=== PATIENT | female | born 1955 | race Caucasian/White ===

== ENCOUNTER 2023-12-12 16:59 | Emergency (ER) | payer MEDICARE, OTHER, SELFPAY ==
[2023-12-12 17:09] VITALS: BP 131/81; PULSE 82; RESP 18; TEMP 37.1; O2SAT 96; BMI 35.1
--- NOTE | 2023-12-12 17:17 | XR_ITS ---
Patient: TERRIE MITCHELL Facility:?[facility] Patient ID:?[id number] Site Patient ID:?[id number] Site :?[id number] Study:?XRay-Extremity Right KNEE3-12/12/2023 5:35:06 PM Ordering Physician:?[id number] Final Report: Indication: Knee pain. Technique: Right knee 3 views. Comparison: None. Findings: Bones: Alignment is normal. No fractures or bone lesions. Joint spaces: Mild degenerative changes of the patellofemoral compartment. No joint effusion. Soft tissues: Unremarkable. Impression: No evidence of an acute bony abnormality. Dictated by Beltran Haynes MD @ 12/12/2023 6:50:09 PM Signed by:?Beltran Haynes MD @12/12/2023 6:50:09 PM (Electronic Signature)
--- NOTE | 2023-12-12 17:18 | US_ITS ---
Patient: TERRIE MITCHELL Facility:?[facility] Patient ID:?[id number] Site Patient ID:?[id number] Site :?[id number] Study:?US-Extremity Right LEV RT-12/12/2023 6:16:00 PM Ordering Physician:?ARLIN SIMON MD Final Report: INDICATION: Leg pain and swelling. TECHNIQUE: Ultrasound venous duplex lower right extremity. Compression venous exam was performed using gallardo-scale, color Doppler, and spectral Doppler analysis. COMPARISON: None. FINDINGS: Deep veins: Sonographic imaging demonstrates the right common femoral, deep femoral, superficial femoral, popliteal, posterior tibial, peroneal and the contralateral left common femoral veins to be fully compressible with normal color Doppler blood flow. Superficial veins: Greater saphenous vein is fully compressible. No popliteal cyst. IMPRESSION: No deep venous thrombosis in the evaluated veins of the right lower extremity. Dictated by Beltran Haynes MD @ 12/12/2023 6:58:58 PM Signed by:?Beltran Haynes MD @12/12/2023 6:58:58 PM (Electronic Signature)
--- NOTE | 2023-12-12 17:18 | ED.GENADULT ---
HPI - General Adult General Chief complaint: Lower Extremity Swelling Stated complaint: R leg swelling Time Seen by Provider: 12/12/23 17:00 History of Present Illness HPI narrative: Patient is a 68-year-old female new to the hospital ER, who has a 1 month history of sore right lower extremity she has noticed more swelling in her foot and ankle, she has noticed some pain in her knee social with internal external rotation. She has had no fevers or chills. She is our primary care doctor was worried about a clot blood clot and referred to the hospital ER. The patient has never had a blood clot has no bleeding or clotting problems. She has had no fevers. She has a history of reflux, allergy. Specifically she has no shortness of breath, chest pain, trauma to the lower extremity, immobilization. Related Data Home Medications Medication Instructions Recorded Confirmed amitriptyline 10 mg tablet 20 - 30 mg PO QPM 12/12/23 12/12/23 montelukast 10 mg tablet 10 mg PO DAILY 12/12/23 12/12/23 nifedipine 30 mg tablet,extended 30 mg PO DAILY 12/12/23 12/12/23 release 24 hr pantoprazole 40 mg tablet,delayed 40 mg PO DAILY 12/12/23 12/12/23 release triamcinolone acetonide 0.5 % applic topical 3XD 12/12/23 topical cream Allergies Allergy/AdvReac Type Severity Reaction Status Date / Time etodolac Allergy Intermediate Rash Verified 12/12/23 17:16 Review of Systems Status of ROS: Reports: 6 or more systems reviewed and unremarkable except as noted in History and below Exam Narrative: Exam Narrative: Objective: The patient's vital signs are within normal limits Alert orient x3 Right lower extremity shows she does have some descriptive tenderness in her internal external rotation when she wakes up in the morning but at the on examination now she has no tenderness no medial lateral joint line tenderness anterior drawer test is negative distal CMS shows some trace edema in her ankle and foot no palpable venous cords or swelling in the calf Const: Vital Signs, click to edit/add: Vital Signs - 24 hr 12/12/23 17:09 Temperature 98.8 F Pulse Rate [Pulse Oximeter] 82 Respiratory Rate 18 Blood Pressure [Ri ght Upper Arm] 131/81 Pulse Oximetry 96 Oxygen Delivery Me thod Room Air Course Vital Signs Vital signs: Initial Vital Signs Temperature 98.8 F 05/17/24 17:09 Temperature Source Temporal Artery Scan 12/12/23 17:09 Pulse Rate 82 12/12/23 17:09 Pulse Rhythm Regular 12/12/23 17:09 Pulse Strength 3+ Normal 12/12/23 17:09 Respiratory Rate 18 12/12/23 17:09 Blood Pressure 131/81 12/12/23 17:09 Blood Pressure Mean 97 12/12/23 17:09 Blood Pressure Position Sitting 12/12/23 17:09 Pulse Oximetry 96 12/12/23 17:09 Oxygen Delivery Method Room Air 12/12/23 17:09 Vital Signs Temperature 98.8 F 12/12/23 17:09 Pulse Rate 82 12/12/23 17:09 Respiratory Rate 18 12/12/23 17:09 Blood Pressure 131/81 12/12/23 17:09 Pulse Oximetry 96 12/12/23 17:09 Oxygen Delivery Method Room Air 12/12/23 17:09 Temperature 98.8 F 12/12/23 17:09 Pulse Rate 82 12/12/23 17:09 Respiratory Rate 18 12/12/23 17:09 Blood Pressure 131/81 12/12/23 17:09 Pulse Oximetry 96 12/12/23 17:09 Oxygen Delivery Method Room Air 12/12/23 17:09 Medical Decision Making MDM Narrative Medical decision making narrative: 68-year-old white female with a history of knee pain and right lower extremity swelling ankle and foot primarily I think at this point would be reasonable to get an x-ray of her knee, get an ultrasound of her leg to exclude clot. Orthopedic referral. Addendum 6:30 p.m. the patient has a x-ray that by my review read shows some mild medial compartment degenerative joint disease arthritic change, she does have some trace fluid in the knee suprapatellar area on lateral view. Her Doppler scan is negative. I would cysts suggest she wear a neoprene knee sleeve such as from [employer], get on medications such as Tylenol for her knee discomfort. Apparently she has got an allergy the total lack. I would recommend she consult with Orthopedics will. And will give her the number for orthopedic office. Return to the ED sooner problems or concerns. Discharge Plan Discharge Clinical Impression: Localized swelling of right lower extremity, Chronic pain of right knee Patient Disposition: Home, Self-Care Condition: Stable Additional Instructions: Ice to the affected knee, would get a knee sleeve from [employer] or other drug store. Would follow up with Orthopedics in 3-5 days for reassessment, please give her the orthopedic office number. Return to the emergency department as needed. There was no evidence of a clot in your leg. You do not have significant arthritis in your knee but likely some inflammation. Activity Level: Light activity Discharge Diet: Regular Prescriptions: No Action nifedipine 30 mg tablet extended release 24hr 30 mg PO DAILY triamcinolone acetonide 0.5 % cream topical 3XD amitriptyline 10 mg tablet 20 - 30 mg PO QPM pantoprazole 40 mg tablet,delayed release (DR/EC) 40 mg PO DAILY montelukast 10 mg tablet 10 mg PO DAILY Stand Alone Forms: [employer] Info Instructions
== END 2023-12-12 18:51 | disposition home or self-care (01) ==
PROVIDERS: Emergency Provider Family Medicine; PCP Family Medicine
DX: M25.561 Pain in right knee (principal); R22.41 Localized swelling, mass and lump, right lower limb
CPT/HCPCS: 73562; 93971; 99283; 99284

== ENCOUNTER 2024-08-31 20:16 | Emergency (ER) | payer MEDICARE, OTHER, SELFPAY ==
--- OUTSIDE RECORDS SUMMARY | 2024-08-31 20:33 | XMS_ITS | Clinical Summary ---
Author Organization [facility] Address [place], [place] [address] Care Team Providers Care Aquatic Life Laborer Name Role Phone Janet Renae MD Primary Care Provide r Jen Hammer ARBOR PRESS OPERATOR Unavailable Bety Ng MD Unavailable Oma Jordan RN Unavailable Allergies Active Allergy Reactions Criticality Noted Date Comments Etodolac Rash 10/23/2006 Medications multivitamin (MVI) tablet Take 1 tablet by mouth once daily. 0 4 Active loratadine (CLARITIN) 10 mg tabletIndication s:Allergic rhinitis, cause unspecified Take 1 tablet by mouth once daily. 90 tablet 3 6 Active calcium carbonate (CALTRATE) 600 mg calcium (1,500 mg) tablet Take 1 tablet by mouth 2 times daily with meals. 180 tablet 3 9 Active triamcinolone 0.5% (ARISTOCORT) 0.5 % creamIndications :Chilblains, initial encounter Apply topically to affected area(s) three times daily. 30 g 4 Active ascorbic acid, vitamin C, (Vitamin C) 1,000 mg tablet Take 1,000 mg by mouth once daily. Active CPAPIndications: ARLENE (obstructive sleep apnea) Resmed CPAP machine for home use at pressure 12 cmw, CPAP mask- mask of choice, fit to comfort one per 3 months 1 Each 11 4 Active pantoprazole (PROTONIX) 40 mg delayed-release tabletIndication s:Johnson's esophagus without dysplasia Take 1 Tablet (40 mg) by mouth once daily before a meal. 90 Tablet 3 4 Active montelukast (SINGULAIR) 10 mg tabletIndication s:Non-seasonal allergic rhinitis, unspecified trigger Take 1 Tablet (10 mg) by mouth at bedtime. 90 Tablet 3 4 Active SUMAtriptan (IMITREX) 50 mg tabletIndication s:Migraine without status migrainosus, not intractable, unspecified migraine type TAKE 1-2 TABLETS BY MOUTH AT ONSET OF HEADACHE. MAXIMUM DAILY DOSE IS 2 TABLETS 10 Tablet 5 4 Active Active Problems Problem Noted Date Diagnosed Date Chronic pain of right knee 03/10/2024 Overview (03/10/2024): Pain started October 2023. Feb 2024: Right knee cortisone injection by Dr. Sequeira. Myelodysplastic syndrome 01/01/2024 Erythema pernio 01/01/2024 Thrombocytopenia 11/11/2023 Johnson's esophagus without dysplasia 10/29/2017 Overview (08/14/2023): EGD 10/2017 esophageal ulceration and Johnson's, repeat EGD in 1 year EGD 08/2020 Johnson's, repeat EGD in 3 years EGD 07/2023 Johnson's, repeat EGD in 3 years History of kidney stones 07/08/2014 Overview (07/08/2014): Calcium stone of some kind ([facility]) Routine adult health maintenance 03/30/2014 Overview (03/30/2014): Colonoscopy 03/2014 incomplete to the transverse colon, recommend BE in the future ARLENE 10/23/2009 AHI-48 11/06/2009 Allergic rhinitis, cause unspecified 10/23/2006 Overview (10/23/2006): seasonal-spring and fall Temporomandibular joint disorders, unspecified Migraine, unspecified, witho ut mention of intractable migraine without mention of status migrainosus Unspecified menopausal and postmenopausal disord er 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 Resolved Problems Problem Noted Date Diagnosed Date Resolved Date Major depressive disorder, r ecurrent episode, unspecified 04/29/2019 Encounters Date Type Department Care Team Description 08/31/[address] [address] Vin Sequeira MD Appointment Request (KNEE PAIN ) 08/31/2024 Nurse Triage [address] [address] Janet Renae MD Leg Pain/problem; Knee Pain/problem 08/26/2024 11:15 AM CLAMP CARRIER OPERATOR Orders Only [address] [address] [facility] 08/26/2024 Orders Only [address] [address] Jen Hammer, ARBOR PRESS OPERATOR <No scans attached> 08/26/2024 Travel 08/21/2024 Travel 07/14/2024 11:15 AM CLAMP CARRIER OPERATOR Orders Only [address] [address] [facility] 07/14/2024 Telephone [facility] [address] [place] [address] Janet Renae MD Cough (Raw throat) 07/14/2024 Travel 07/13/2024 Travel 07/05/2024 9:10 AM CLAMP CARRIER OPERATOR Office Visit [facility] [address] [place] [address] Zena Devlin MD Sinus Problem (since friday 12/ coughing, mucus green, body aches, fever last 2 days 100.3, lost voice over the weekend, 2 COVID-19 at home were Negative) 07/05/[address] [address] Zena Devlin MD Medication Management 07/05/2024 Travel 07/03/2024 Nurse Triage [facility] [address] [place] [address] Janet Renae MD Cough 06/23/2024 8:20 AM CLAMP CARRIER OPERATOR Office Visit [facility] [address] [place] [address] Zena Devlin MD Abdominal Pain (Started 10pm last night, nothing working, pain scale of 10 ) 06/23/2024 Travel 06/14/2024 Telephone [facility] [address] [place] [address] Anton[place]eta Mace [place], [facility] [place] Up (Cancer genetic testing results) 06/02/2024 1:45 PM CLAMP CARRIER OPERATOR Office Visit [address] [address] Jen Hammer, ARBOR PRESS OPERATOR Follow Up 06/02/2024 Travel from Last 3 Months Immunizations Name Administration Dates Next Due COVID-19 vaccine (Moderna 100mcg/0.5mL) PF, MDV 11/16/2021,06/11/2021,08/29/2020,2020 COVID-19 vaccine (Moderna 50mcg/0.5mL) 12YO+ BIVALENT PF, MDV 05/06/2022 Influenza Virus, Unspecified 04/14/2018 Influenza, High-dose Quadriv alent Inactivated 04/18/2023,05/09/2022,05/15/2021 Influenza, IIV3 (Age >=3 years) 05/07/2017,08/16,05/20/2011 Influenza, Inactivated AIIV4 (Age 65+ Years) Preserv Free 05/15/2021 Influenza, Inactivated IIV3 (Age 65+ Years) Preserv Free 04/13/2024 Pneumococcal Poly,23-Valent (Pneumovax) 09/20/2021 Pneumococcal conj 13-Valent (Prevnar 13) 04/29/2019 Td (Age >=7 Years) 03/07/2000 Tdap 09/20/2021,03/19/2010 Zoster (Shingrix-RZV, recombinant) 07/09/2018,,04/28/2018 Family History Medical History Relation Name Comments Cancer Brother 1 testicular Heart Disease Brother 2 Hyperlipidemia Brother 2 Hypertension Father Hypertension Mother Other Mother dementia- vascu lar Cancer-breast Sister Cancer-colon No Family History Cancer-ovarian No Family History Relation Name Status Comments Brother 1 Brother 2 Father Mother Sister Social History Tobacco Use Types Packs/Day Years Used Date Smoking Tobacco: Never Smokeless Tobacco: Never Tobacco Cessation:Counseling Given: Yes Alcohol Use Standard Drinks/Week Comments Yes 0 (1 standard drink = 0.6 oz pur e alcohol) 1-2 per month PHQ-2 Answer Date Recorded PHQ-2 TOTAL SCORE 0 04/13/2024 Social Connections Answer Date Recorded Do you often feel lonely or isolated from those around you? 0 01/01/2024 Financial Resource Strain Answer Date R ecorded Difficulty of Paying Living Expenses 3 11/11/2023 Difficulty of Paying Living Expenses Not on file 11/11/2023 Food Insecurity Answer Date Recorded Do you worry your food will run out before you are able to buy more? 1 01/01/2024 Transportation Needs Answer Date Record ed Does lack of transportation keep you from medica l appointments? 1 01/01/2024 Does lack of transportation keep you from work, meetings or getting things that you need? 1 01/01/2024 Housing Stability Answer Date Recorded What is your housing situation today? 1 01/01/2024 Utilities Answer Date Recorded Do you have trouble paying f or utilities (for example, heat, electricity, water, phone)? 1 01/01/2024 Comments No Sex and Gender Information Value Date Recorded Sex Assigned at Not on file Legal Sex Female 5:27 AM CLAMP CARRIER OPERATOR Gender Identity Not on file Sexual Orientation Not on file Occupation Industry Job Start Date Job End Date Not on file Not on file Not on file Not on file Obstetrics History Para Term AB IAB SAB Ectopic Multiple Livin g Live Births 0 0 0 0 0 0 0 0 0 0 Last Filed Vital Signs Vital Sign Reading Time Taken Comments Blood Pressure 136/82 07/05/2024 9:19 AM CLAMP CARRIER OPERATOR Pulse 84 07/05/2024 9:19 AM CLAMP CARRIER OPERATOR Temperature 37.6 C (99.6 F) 07/05/2024 9:19 AM CLAMP CARRIER OPERATOR Respiratory Rate 17 06/02/2024 1:34 PM CLAMP CARRIER OPERATOR Oxygen Saturation 98% 07/05/2024 9:19 AM CLAMP CARRIER OPERATOR Inhaled Oxygen Concentration - - Weight 90.7 kg (200 lb) 07/05/2024 9:19 AM CLAMP CARRIER OPERATOR Height 160 cm (5' 3) 04/13/2024 8:55 AM CDT Body Mass Index 35.43 04/13/2024 8:55 AM CDT Plan of Treatment Upcoming Encounters Date Type Department Care Team (Late st Contact Info) Description 09/02/2024 1:00 PM CLAMP CARRIER OPERATOR Office Visit [facility] [address] [place] [address] Bety Ng MD [address] [place] [address] 09/07/2024 10:20 AM CLAMP CARRIER OPERATOR Office Visit [facility] [address] [place] [address] Vin Sequeira MD [address] [place] [address] Health Maintenance Due Date Last Done Comments RSV vaccine for adults or (1 - Risk 60-74 years 1-dose series) 2014 Mammogram for age 45-75 03/23/2025 03/23/20 24, 01/21/2023, 09/20/2021, Additional history exists BMI (ht and wt on same day) for age 18+ 04/13/2025 04/13/2024, 11/18/2023, 11/11/2023, Additional history exists Depression screening for age 12+ 04/13/2025 04/13/2024, 04/13/2024, 01/21/2023, Additional history exists Medicare Wellness for age 65+ 04/14/2025 04/13/2024, 01/21/2023 Fecal testing sDNA-FIT ([place] guard) for age 45-75 05/05/2027 05/05/2024 Lipids for age 45-75 04/13/2029 04/13/2024, 01/21/2023, 08/11/2020, Additional history exists Tetanus booster 09/20/2031 09/20/2021, 02/26, 03/07/2000 Hepatitis C screening for ag e 18-79 Completed 05/05/2018 Zoster (shingles) series for age 50+ Completed 07/09/2018, 07/09/2018, 04/28/2018 DEXA/DXA scan for age 65+ Completed 05/04/2019 Pneumococcal series for age 50+ Completed , 04/29/2019 Tdap Completed 09/20/2021, 03/19/2010 Influenza for age 65+ Completed 04/13/2024 , 04/18/2023, 05/09/2022, Additional history exists COVID-19 vaccine series Completed 04/20/20, 08/07/2023, 11/29/2022, Additional history exists Procedures Procedure Name Priority Date/Time Associated Diagnosis Comments RETICULOCYTES Routine 08/26/2024 12:08 PM CLAMP CARRIER OPERATOR PLATELET ESTIMATION ([facility] REFLEX ONLY) Routine 08/26/2024 12:08 PM CLAMP CARRIER OPERATOR CBC WITH AUTO DIFFERENTIAL Routine 08/26/2024 12:08 PM CLAMP CARRIER OPERATOR COMP METABOLIC PANEL Routine 08/26/2024 12:08 PM CLAMP CARRIER OPERATOR LD,TOTAL Routine 08/26/2024 12:08 PM CLAMP CARRIER OPERATOR PLATELET ESTIMATION ([facility] REFLEX ONLY) Routine 07/14/2024 11:14 AM CLAMP CARRIER OPERATOR CBC WITH AUTO DIFFERENTIAL Routine 07/14/2024 11:14 AM CLAMP CARRIER OPERATOR Myelodysplastic syndrome (HC) RED CELL MORPHOLOGY STAT 06/23/2024 9 :18 AM CLAMP CARRIER OPERATOR Abdominal pain, generalized PLATELET ESTIMATE STAT 06/23/2024 9:1 8 AM CLAMP CARRIER OPERATOR Abdominal pain, generalized MANUAL DIFFERENTIAL STAT 06/23/2024 9 :18 AM CLAMP CARRIER OPERATOR Abdominal pain, generalized CBC WITH AUTO DIFFERENTIAL STAT 06/23/2024 9:18 AM CLAMP CARRIER OPERATOR Abdominal pain, generalized COMP METABOLIC PANEL STAT 06/23/2024 9:18 AM CLAMP CARRIER OPERATOR Abdominal pain, generalized CBC WITH AUTO DIFFERENTIAL STAT 06/23/2024 9:18 AM CLAMP CARRIER OPERATOR Abdominal pain, generalized URINALYSIS MACROSCOPIC - [facility] ONLY POC DIP ([facility]) Routine 06/23/2024 8:44 AM CLAMP CARRIER OPERATOR Abdominal pain, generalized URINALYSIS MICROSCOPIC Routine 06/23/2024 8:43 AM CLAMP CARRIER OPERATOR Abdominal pain, generalized URINE CULTURE Routine 06/23/2024 8:43 AM CLAMP CARRIER OPERATOR Abdominal pain, generalized SDNA-FIT EXTERNAL (COLOGUARD) Routine 05/05/2024 8:15 PM CDT Screening for colon cancer LIPID PANEL W REFLEX MEASURED LDL Routine 04/13/2024 11:19 AM CDT Lipid screening XR MAMMO BANDAR BILAT SCREEN Routine 03/23/2024 9:05 AM CDT Visit for screening mammogram XR DXA BONE DENSITY 2 SITES AXIAL Routine 05/04/2019 9:47 AM CDT Menopausal and postmenopausal disorder ANTI HCV Routine 05/05/2018 8:49 AM CDT Need for hepatitis C screening test from Last 3 Months or Most Recently Relevant to Health Maintenance Results * (ABNORMAL) PLATELET ESTIMATION ([facility] REFLEX ONLY) (08/26/2024 12:08 PM CLAMP CARRIER OPERATOR) Only the most recent of2 resultswithin the time period is included. PLATELET ESTIMATION DECREASED( A) ADEQUATE [facility] 08/26/2024 12:0 8 PM CLAMP CARRIER OPERATOR 08/26/2024 12:08 PM CLAMP CARRIER OPERATOR us Li L Richy ARBOR PRESS OPERATOR HEMATOLOGY Final Result Performing Organization Address [facility]/ZIP Co de Phone Number [facility] [address] [place] [address], [place] [phone] [facility] [address] [place] [address] * LD,TOTAL (08/26/2024 12:08 PM CLAMP CARRIER OPERATOR) Pathologist [facility] LD 216 120 - 250 U/L [facility] 08/26/2024 12:0 8 PM CLAMP CARRIER OPERATOR 08/26/2024 12:08 PM CLAMP CARRIER OPERATOR us Jen Villanuevay ARBOR PRESS OPERATOR CHEMISTRY Final Result Performing Organization Address [facility] Co de Phone Number [facility] [address] [place] [address], [place] [phone] [facility] [address] [place] [address] * RETICULOCYTES (08/26/2024 12:08 PM CLAMP CARRIER OPERATOR) [facility] RETICULOCYTE COUNT, AUTOMATED 1.3 % [facility] RETICULOCYTE, ABSOLUTE 56,160 20,000 - 80,000 cells/uL [facility] 08/26/2024 12:0 8 PM CLAMP CARRIER OPERATOR 08/26/2024 12:08 PM CLAMP CARRIER OPERATOR us Li L Selly ARBOR PRESS OPERATOR HEMATOLOGY Final Result Performing Organization Address [facility]/ZIP Co de Phone Number [facility] [address] [place] [address], [place] [phone] [facility] [address] [place] [address] * (ABNORMAL) CBC AND DIFFERENTIAL (08/26/2024 12:08 PM CLAMP CARRIER OPERATOR) Only the most recent of2 resultswithin the time period is included. WHITE BLOOD CELL COUNT 3.8 3.8 - 10.8 Thousand/u L [facility] RED BLOOD CELL COUNT 4.32 3.80 - 5.10 Million/uL [facility] HEMOGLOBIN 12.3 11.7 - 15.5 g/dL [facility] HEMATOCRIT 39.3 35.0 - 45.0 % [facility] MCV 91.0 80.0 - 100.0 fL [facility] MCH 28.5 27.0 - 33.0 pg [facility] MCHC 31.3(L) 32.0 - 36.0 g/dL [facility] Comment: For adults, a slight decrease in the calculated MCHC value (in the range of 30 to 32 g/dL) is most likely not clinically significant; however, it should be interpreted with caution in correlation with other red cell parameters and the patient's clinical condition. RDW 13.2 11.0 - 15.0 % [facility] PLATELET COUNT 49(L) 140 - 400 Thousand/u L [facility] MPV [facility] Comment: Due to platelet or RBC variability in size or shape the result cannot be reported accurately. ABSOLUTE NEUTROPHILS 1,121(L) 1,500 - 7,800 cells/uL [facility] ABSOLUTE LYMPHOCYTES 2,029 850 - 3,900 cells/uL [facility] ABSOLUTE MONOCYTES 619 200 - 950 cells/uL [facility] ABSOLUTE EOSINOPHILS 19 15 - 500 cells/uL [facility] ABSOLUTE BASOPHILS 11 0 - 200 cells/uL [facility] NEUTROPHILS 29.5 % [facility] LYMPHOCYTES 53.4 % [facility] MONOCYTES 16.3 % [facility] EOSINOPHILS 0.5 % [facility] BASOPHILS 0.3 % [facility] CBC (INCLUDES DIFF/PLT) COMMENTS [facility] Comment: Review of the peripheral smear reveals decreased numbers of platelets. Giant platelets noted. 08/26/2024 12:0 8 PM CLAMP CARRIER OPERATOR 08/26/2024 12:08 PM CLAMP CARRIER OPERATOR us Jen Hammer NP HEMATOLOGY Final Result [facility] [address] [place] [address], [facility] [address] [place] [address] * COMP METABOLIC PANEL (08/26/2024 12:08 PM CLAMP CARRIER OPERATOR) Only the most recent of2 resultswithin the time period is included. GLUCOSE 93 65 - 99 mg/dL [facility] Comment: Fasting reference interval UREA NITROGEN (BUN) 15 7 - 25 mg/dL [facility] CREATININE 0.88 0.60 - 1.00 mg/dL [facility] EGFR 71 > OR = 60 mL/min/1. 73m2 [facility] BUN/CREATININE RATIO SEE NOTE: 6 - 22 (calc) [facility] Comment: Not Reported: BUN and Creatinine are within reference range. SODIUM 140 135 - 146 mmol/L [facility] POTASSIUM 3.9 3.5 - 5.3 mmol/L [facility] CHLORIDE 105 98 - 110 mmol/L [facility] CARBON DIOXIDE 25 20 - 32 mmol/L [facility] CALCIUM 9.4 8.6 - 10.4 mg/dL [facility] PROTEIN, TOTAL 7.2 6.1 - 8.1 g/dL [facility] ALBUMIN 4.4 3.6 - 5.1 g/dL [facility] GLOBULIN 2.8 1.9 - 3.7 g/dL (calc) [facility] ALBUMIN/GLOBULIN RATIO 1.6 1.0 - 2.5 (calc) [facility] BILIRUBIN, TOTAL 0.4 0.2 - 1.2 mg/dL [facility] ALKALINE PHOSPHATASE 67 37 - 153 U/L [facility] AST 18 10 - 35 U/L [facility] ALT 17 6 - 29 U/L [facility] 08/26/2024 12:0 8 PM CLAMP CARRIER OPERATOR 08/26/2024 12:08 PM CLAMP CARRIER OPERATOR us Jen L Jaquelin ARBOR PRESS OPERATOR CHEMISTRY Final Result [facility] [address] [place] [address], [place] [phone] [facility] [address] [place] [address] * (ABNORMAL) CBC WITH AUTO DIFFERENTIAL (06/23/2024 9:18 AM CLAMP CARRIER OPERATOR) WHITE BLOOD COUNT 4.3(L) 4.5 - 11.0 thou/cu mm 06/23/2024 1:11 PM [facility] RED BLOOD COUNT 4.37 4.00 - 5.20 mil/cu mm 06/23/2024 1:11 PM [facility] HEMOGLOBIN 12.5 12.0 - 16.0 g/dL 06/23/2024 1:11 PM [facility] HEMATOCRIT 40.6 33.0 - 51.0 % 06/23/2024 1:11 PM [facility] MCV 93 80 - 100 fL 06/23/2024 1:11 PM [facility] MCH 28.6 26.0 - 34.0 pg 06/23/2024 1:11 PM [facility] MCHC 30.8(L) 32.0 - 36.0 g/dL 06/23/2024 1:11 PM [facility] RDW 14.2 11.5 - 15.5 % 06/23/2024 1:11 PM [facility] PLATELET COUNT 41(L) 140 - 440 thou/cu mm 06/23/2024 1:11 PM [facility] MPV 06/23/2024 1:11 PM [facility] Comment:Unable to be determi kelly Blood BLOOD SPECIMEN / Unknown [facility] / Unknown 06/23/2024 9:18 AM CLAMP CARRIER OPERATOR 06/23/2024 9:18 AM CLAMP CARRIER OPERATOR us Zena Devlin MD HEMATOLOGY Final Resul t Performing Organization Address [facility]/ZIP Co de Phone Number [facility] [address] [place] [address] * RED CELL MORPHOLOGY (06/23/2024 9:18 AM CLAMP CARRIER OPERATOR) RBC COMMENT RBC morphology appears normal RBC morphology appears normal, RBC morphology within normal limits for newborns. 06/23/2024 1:11 PM CLAMP CARRIER OPERATOR [facility] LARGE PLATELETS Present 06/23/2024 1:11 PM CLAMP CARRIER OPERATOR [facility] Blood BLOOD SPECIMEN / Unknown [facility] / Unknown 06/23/2024 9:18 AM CLAMP CARRIER OPERATOR 06/23/2024 9:18 AM CLAMP CARRIER OPERATOR us Zena Devlin MD HEMATOLOGY Final Resul t Performing Organization Address [facility] Co de Phone Number [facility] [address] [place] [address] * (ABNORMAL) PLATELET ESTIMATE (06/23/2024 9:18 AM CLAMP CARRIER OPERATOR) Pathologist [facility] PLATELET ESTIMATE Decreased (A) Adequate, No estimate 06/23/2024 1:11 PM CLAMP CARRIER OPERATOR [facility] Blood BLOOD SPECIMEN / Unknown [facility] / Unknown 06/23/2024 9:18 AM CLAMP CARRIER OPERATOR 06/23/2024 9:18 AM CLAMP CARRIER OPERATOR us Zena Devlin MD HEMATOLOGY Final Resul t Performing Organization Address City/[facility] Co de Phone Number [facility] [address] [place] [address] * (ABNORMAL) MANUAL DIFFERENTIAL (06/23/2024 9:18 AM CLAMP CARRIER OPERATOR) Pathologist [facility] % NEUTROPHILS 48.0 % 06/23/2024 1:11 PM [facility] % LYMPHOCYTES 31.0 % 06/23/2024 1:11 PM [facility] % MONOCYTES 20.0 % 06/23/2024 1:11 PM [facility] % EOSINOPHILS 1.0 % 06/23/2024 1:11 PM [facility] % BASOPHILS 0.0 % 06/23/2024 1:11 PM [facility] NEUTROPHILS ABSOLUTE 2.1 1.7 - 7.0 thou/cu mm 06/23/2024 1:11 PM [facility] LYMPHOCYTES ABSOLUTE 1.3 0.9 - 2.9 thou/cu mm 06/23/2024 1:11 PM [facility] MONOCYTES ABSOLUTE 0.9(H) <0.9 thou/cu mm 06/23/2024 1:11 PM [facility] EOSINOPHILS ABSOLUTE 0.0 <0.5 thou/cu mm 06/23/2024 1:11 PM [facility] BASOPHILS ABSOLUTE 0.0 <0.3 thou/cu mm 06/23/2024 1:11 PM [facility] Blood BLOOD SPECIMEN / Unknown [facility] / Unknown 06/23/2024 9:18 AM CLAMP CARRIER OPERATOR 06/23/2024 9:18 AM CLAMP CARRIER OPERATOR us Zena Devlin MD HEMATOLOGY Final Resul t Performing Organization Address City/State/[facility] Co de Phone Number [facility] [address] [place] [phone] * (ABNORMAL) POCT Urinalysis Dipstick Only (06/23/2024 8:44 AM CLAMP CARRIER OPERATOR) PH 7.0 5.0 - 8.0 [facility] SPECIFIC GRAVITY 1.020 1.001 - 1.035 [facility] GLUCOSE NEGATIVE NEGATIVE [facility] BILIRUBIN NEGATIVE NEGATIVE [facility] KETONES NEGATIVE NEGATIVE [facility] OCCULT BLOOD TRACE(A) NEGATIVE [facility] PROTEIN NEGATIVE NEGATIVE [facility] NITRITE NEGATIVE NEGATIVE [facility] LEUKOCYTE ESTERASE TRACE(A) NEGATIVE [facility] Urine URINE SPECIMEN / Unknown 06/23/2024 8:44 AM CLAMP CARRIER OPERATOR 06/23/2024 8:45 AM CLAMP CARRIER OPERATOR us Zena Devlin MD URINE Final Resul t [facility] [address] [place] [address], [facility] [address] [place] [address] * (ABNORMAL) URINALYSIS MICROSCOPIC (06/23/2024 8:43 AM CLAMP CARRIER OPERATOR) RBC 3-5(A) 0-2, None Seen /HPF 06/23/2024 2:20 PM CLAMP CARRIER OPERATOR [facility] WBC 0-2 0-2, 3-5, None Seen /HPF 06/23/2024 2:20 PM CLAMP CARRIER OPERATOR [facility] BACTERIA None Seen None Seen, Rare, Few Bacteria/ HPF 06/23/2024 2:20 PM CLAMP CARRIER OPERATOR [facility] EPITHELIAL CELLS None Seen None Seen, Few Epi/HPF 06/23/2024 2:20 PM CLAMP CARRIER OPERATOR [facility] Urine URINE SPECIMEN / Unknown Non-Blood / Unknown 06/23/2024 8:43 AM CLAMP CARRIER OPERATOR 06/23/2024 8:43 AM CLAMP CARRIER OPERATOR us Zena Devlin MD URINE Final Resul t [facility] [facility] [address] [place] [address], * URINE CULTURE (06/23/2024 8:43 AM CLAMP CARRIER OPERATOR) CULTURE No growth (<1,000 CFU/mL) 06/24/2024 3:41 PM CLAMP CARRIER OPERATOR [facility] Urine URINE SPECIMEN / Unknown Non-Blood / Unknown 06/23/2024 8:43 AM CLAMP CARRIER OPERATOR 06/23/2024 8:43 AM CLAMP CARRIER OPERATOR us Zena Devlin MD MICROBIOLOGY Final Resul t [facility] [address] [place] [address], * SDNA-FIT EXTERNAL (COLOGUARD) (05/05/2024 8:15 PM CDT) NONINV COLON CA DNA+OCC BLD SCRN STL-IMP Negative Negative 05/12/2024 9:31 AM CDT [facility] (CLIA #:[id number]) Comment: NEGATIVE TEST RESULT. A negative Cologuard result indicates a low likelihood that a colorectal cancer (CRC) or advanced adenoma (adenomatous polyps with more advanced pre-malignant features) is present. The chance that a person with a negative Cologuard test has a colorectal cancer is less than 1 in 1500 (negative predictive value >99.9%) or has an advanced adenoma is less than 5.3% (negative predictive value 94.7%). These data are based on a prospective cross-sectional study of 10,000 individuals at average risk for colorectal cancer who were screened with both Cologuard and colonoscopy. (Keisha Coronel et al, N Engl J Med 2014;370(14):3396-8473) The normal value (reference range) for this assay is negative. COLOGUARD RE-SCREENING RECOMMENDATION: Periodic colorectal cancer screening is an important part of preventive healthcare for asymptomatic individuals at average risk for colorectal cancer. Following a negative Cologuard result, the [place] [employer] and U.S. Multi-Society Task Force screening guidelines recommend a Cologuard re-screening interval of 3 years. References: [place] [employer] Guideline for Colorectal Cancer Screening: https://www.cancer.org/cancer/wuxot-kmmuib-mitone/krayqzyyh-kvjyrwmmh-airkrpl/ac s-rec ommendations.html.; Mickey DK, Darryl CR, Jyoti SALGADO, Colorectal Cancer Screening: Recommendations for Physicians and Patients from the U.S. Multi-Society Task Force on Colorectal Cancer Screening , Am J Gastroenterology 2017; 112:1427-2615. TEST DESCRIPTION: Composite algorithmic analysis of stool DNA-biomarkers with hemoglobin immunoassay. Quantitative values of individual biomarkers are not reportable and are not associated with individual biomarker result reference ranges. Cologuard is intended for colorectal cancer screening of adults of either sex, 45 years or older, who are at average-risk for colorectal cancer (CRC). Cologuard has been approved for use by the U.S. FDA. The performance of Cologuard was established in a cross sectional study of average-risk adults aged 50-84. Cologuard performance in patients ages 45 to 49 years was estimated by sub-group analysis of near-age groups. Colonoscopies performed for a positive result may find as the most clinically significant lesion: colorectal cancer [4.0%], advanced adenoma (including sessile serrated polyps greater than or equal to 1cm diameter) [20%] or non- advanced adenoma [31%]; or no colorectal neoplasia [45%]. These estimates are derived from a prospective cross-sectional screening study of 10,000 individuals at average risk for colorectal cancer who were screened with both Cologuard and colonoscopy. (Keisha Elias. et al, N Engl J Med 2014;370(14):6456-4827.) Cologuard may produce a false negative or false positive result (no colorectal cancer or precancerous polyp present at colonoscopy follow up). A negative Cologuard test result does not guarantee the absence of CRC or advanced adenoma (pre-cancer). The current Cologuard screening interval is every 3 years. ([place] [employer] Society and U.S. Multi-Society Task Force). Cologuard performance data in a 10,000 patient pivotal study using colonoscopy as the reference method can be accessed at the following location: www.[employer].com/results. Additional description of the Cologuard test process, warnings and precautions can be found at [email or web address]. Stool specimen (specimen) (Rectum) 05/05/2024 8:15 PM CDT 05/07/2024 10:00 AM CDT Janet Renae MD URINE Final Result [facility] (CLIA #:[id number]) [place] [address], [place] [phone] * (ABNORMAL) LIPID PANEL W REFLEX MEASURED LDL (04/13/2024 11:19 AM CDT) CHOLESTEROL, TOTAL 228(H) <200 mg/dL [facility] HDL CHOLESTEROL 60 > OR = 50 mg/dL [facility] TRIGLYCERIDES 111 <150 mg/dL [facility] LDL-CHOLESTEROL 145(H) mg/dL (calc) [facility] Comment: Reference range: <100 Desirable range <100 mg/dL for primary prevention; <70 mg/dL for patients with CHD or diabetic patients with > or = 2 CHD risk factors. LDL-C is now calculated using the Phu calculation, which is a validated novel method providing better accuracy than the Friedewald equation in the estimation of LDL-C. Jeovany CABALLERO et al. ZAHRAA. 2013;310(19): 4048-3576 (http://education.Conviva/faq/OHZ179) CHOL/HDLC RATIO 3.8 <5.0 (calc) [facility] NON HDL CHOLESTEROL 168(H) <130 mg/dL (calc) [facility] Comment: For patients with diabetes plus 1 major ASCVD risk factor, treating to a non-HDL-C goal of <100 mg/dL (LDL-C of <70 mg/dL) is considered a therapeutic option. Blood BLOOD SPECIMEN / Unknown 04/13/2024 11:19 AM CDT 04/13/2024 11:19 AM CDT Janet Renae MD CHEMISTRY Final Result [facility] [address] [place] [address], [place] [phone] [facility] [address] [place] [address] * XR MAMMO BANDAR BILAT SCREEN (03/23/2024 9:05 AM CDT) Anatomical Region Laterality Modality BREASTS, Breast Left, Breast Right Bilateral Mammography Impressions 03/24/2024 2:51 PM CDT There is no radiographic evidence for malignancy. Recommend annual mammograms. MAMMOGRAM ASSESSMENT: ACR 1 Negative PATIENTS: You will also receive a letter with your examination results in an easy to read format. If you have questions about your results, please contact your referring provider. Narrative 03/24/2024 2:51 PM CDT For Patients: As a result of the Century Cures Act, medical imaging exams and procedure reports are released immediately into your electronic medical record. You may view this report before your referring provider. If you have questions, please contact your health care provider. XR MAMMO BANDAR BILAT SCREEN [[id number]] CLINICAL HISTORY: This is an asymptomatic 69 y.o. patient. INDICATION FOR EXAM: Mammogram Screening. TECHNIQUE: CC & MLO views were obtained. This study was evaluated with the assistance of Computer-Aided Detection. Breast Tomosynthesis was used in interpretation. COMPARISON FILM: Yes 01/21/23 [facility] 09/20/21 [employer] FINDINGS: There are scattered areas of fibroglandular density. There are no dominant masses, suspicious micro calcifications or areas of architectural distortion. us Janet Renae MD MAMMO Final Result * (ABNORMAL) XR DXA BONE DENSITY 2 SITES AXIAL (05/04/2019 9:47 AM CDT) Anatomical Region Laterality Modality Spine, HIPS, HIPL, HIPR Other Narrative 05/05/2019 4:34 PM CDT Please see scanned document for results of this study. us Andrey Fletcher MD DEXA Final Resu lt * ANTI HCV [[id number]] (05/05/2018 8:49 AM CDT) HEPATITIS C ANTIBODY Non-React billy Non-React billy 05/05/2018 2:14 PM CDT [facility] Comment:Antibodies to HCV no t detected; does not exclude the possibility of exposure to HCV. Blood BLOOD SPECIMEN / Unknown Venipuncture / Unknown 05/05/2018 8:49 AM CDT 05/05/2018 8:49 AM CDT us Andrey Fletcher MD SEND OUTS Final Resu lt [facility] 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
[2024-08-31 21:21] VITALS: BP 144/80; PULSE 82; RESP 18; TEMP 37.1; O2SAT 99; BMI 33.7
[2024-08-31 21:48] VITALS: BP 135/74; PULSE 80; RESP 18; TEMP 37.1; O2SAT 99
--- NOTE | 2024-08-31 21:48 | ED.GENADULT ---
HPI - General Adult General Date Seen: 08/31/24 Chief complaint: Extremity Pain/Injury, Lower Stated complaint: R knee pain Time Seen by Provider: 08/31/24 21:27 History of Present Illness HPI narrative: Patient is a 69-year-old woman with a history of knee pain for the past year so. She says that she had an injection by her primary doctor 6-9 months ago and was doing well until about the past week and a half when she started to get sharp pain and the side and back of her right knee. This radiates up and down her leg. She says if she is standing still she feels okay but as soon as she tries to put weight on that leg she has sharp pain. She called the nurse line today to ask what to do and they recommended she come in to rule out DVT. She does not have any history of DVT or PE. She does have it sounds like some kind of myelodysplastic syndrome which is being watched, she says her white blood cell count is low and she bruises easily, but has not been diagnosed with cancer. She has not noted significant swelling in the leg, no redness. She has been taking Tylenol but she says it just does not help and she is having trouble getting around even with her mother's cane. She says she called the nurse line to figure out what else she could do for pain so that she can be more mobile. Related Data Home Medications ?Medication ?Instructions ?Recorded ?Confirmed amitriptyline 10 mg tablet 20 - 30 mg PO QPM 12/12/23 12/12/23 montelukast 10 mg tablet 10 mg PO DAILY 12/12/23 12/12/23 nifedipine 30 mg tablet,extended 30 mg PO DAILY 12/12/23 12/12/23 release 24 hr pantoprazole 40 mg tablet,delayed 40 mg PO DAILY 12/12/23 12/12/23 release triamcinolone acetonide 0.5 % applic topical 3XD 12/12/23 topical cream Allergies Allergy/AdvReac Type Severity Reaction Status Date / Time etodolac Allergy Intermediate Rash Verified 12/12/23 17:16 Review of Systems Status of ROS: Reports: 6 or more systems reviewed and unremarkable except as noted in History and below PFSH PFSH Social History Smoking Status: Never smoker Second hand tobacco smoke exposure: No How often do you have a drink containing alcohol: never AUDIT-C Alcohol total score: 0 Non-prescribed substance use: denies use Exam Narrative: Exam Narrative: Vital signs reviewed In general, alert, well-appearing woman, she looks comfortable lying in bed. Extremities: Examination of bilateral lower extremity shows no significant asymmetry, she has trace edema in both ankles. Her right knee is mildly tender laterally and medially, she actually does not have any tenderness posteriorly. She has likely a small effusion, there is no erythema or warmth. She has full range of motion and this does not seem to cause pain. Distal CMS is intact. 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 Overall, I do not think her symptoms are suggestive of DVT. She had a Doppler last time she was here which was negative, and my clinical suspicion is not high enough to think that she needs an ultrasound tonight. I discussed this with her, reviewed that if she felt very uncomfortable with that we certainly could pursue an ultrasound just to be on the safe side, but she does not feel needed she does not think it is a blood clot. She does feel that this is coming from her knee. She made an appointment with her primary doctor for 1 week from now and says that he is good about getting back to her and thinks he will be able to get her in sooner. I gave her oxycodone 5 mg here. I have asked her to continue with Tylenol 1000 mg 3 times daily and then I gave her oxycodone 10 tabs from [facility] that she can use for more severe pain. Reviewed reasons to return such as severe uncontrolled pain, new swelling or redness, fevers etcetera. At this time I do not see any evidence of hemarthrosis or septic joint. Vital Signs Vital signs: Initial Vital Signs Temperature 98.8 F 08/31/24 21:21 Temperature Source Temporal Artery Scan 08/31/24 21:21 Pulse Rate 82 08/31/24 21:21 Respiratory Rate 18 08/31/24 21:21 Blood Pressure 144/80 H 08/31/24 21:21 Blood Pressure Mean 101 08/31/24 21:21 Blood Pressure Position Sitting 08/31/24 21:21 Pulse Oximetry 99 08/31/24 21:21 Oxygen Delivery Method Room Air 08/31/24 21:21 Vital Signs Temperature 98.8 F 08/31/24 21:21 Pulse Rate 82 08/31/24 21:21 Respiratory Rate 18 08/31/24 21:21 Blood Pressure 144/80 H 08/31/24 21:21 Pulse Oximetry 99 08/31/24 21:21 Oxygen Delivery Method Room Air 08/31/24 21:21 Temperature 98.8 F 08/31/24 21:48 Pulse Rate 80 08/31/24 21:48 Respiratory Rate 18 08/31/24 21:48 Blood Pressure 135/74 08/31/24 21:48 Pulse Oximetry 99 08/31/24 21:48 Oxygen Delivery Method Room Air 08/31/24 21:48 Medications Administered Medications: Generic Name Dose Route Start Last Admin Trade Name Freq PRN Reason Stop Dose Admin Oxycodone HCl 5 mg 08/31/24 21:47 08/31/24 21:50 Oxycodone 5 Mg Tablet PO 08/31/24 21:48 5 mg ONCE ONE Administration Discharge Plan Discharge Clinical Impression: Knee pain, right Patient Disposition: Home, Self-Care Condition: Stable Instructions: Knee Pain (ED) Additional Instructions: Follow-up with your primary doctor as planned. Tylenol 1000 mg 3 times daily, oxycodone if needed for more severe pain. Use caution as this can cause dizziness, sleepiness, constipation, and is habit forming. Take only as needed. If your condition changes, you notes significant swelling, inability to bend the knee, redness, significant swelling of the leg in general, return for re-evaluation. Prescriptions: No Action nifedipine 30 mg tablet extended release 24hr 30 mg PO DAILY triamcinolone acetonide 0.5 % cream topical 3XD amitriptyline 10 mg tablet 20 - 30 mg PO QPM pantoprazole 40 mg tablet,delayed release (DR/EC) 40 mg PO DAILY montelukast 10 mg tablet 10 mg PO DAILY Follow Up/Referrals: Janet Renae MD [Primary Care Provider] - Stand Alone Forms: [employer] Info Instructions
[2024-08-31] MEDS: OXYCODONE 5 MG TABLET PO (21:50)
[2024-08-31 21:52] VITALS: BP 135/74; PULSE 80; RESP 18; TEMP 37.1
--- OUTSIDE RECORDS SUMMARY | 2024-08-31 21:53 | XMS_ITS | Clinical Summary ---
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 Phone Janet Renae MD Primary Care Provide r Jen Hammer SPORTS RECRUITER Unavailable Bety Ng MD Unavailable Oma Jordan [...] Overview (07/08/2014): Calcium stone of some kind ([facility]) Routine adult health maintenance 03/30/2014 Overview [...] Type Department Care Team Description 08/31/[address] [address] Vin Sequeira MD Appointment Request (KNEE PAIN ) 08/31/2024 Nurse Triage [address] [address] Janet Renae MD Leg Pain/problem; Knee Pain/problem 08/26/2024 11:15 AM HEADEND TECHNICIAN Orders Only [address] [address] [facility] 08/26/2024 Orders Only [address] [address] Jen Hammer, SPORTS RECRUITER <No scans attached> 08/26/2024 Travel 08/21/2024 Travel 07/14/2024 11:15 AM HEADEND TECHNICIAN Orders Only [address] [address] [facility] [place] 07/14/2024 [facility]phone [facility] [address] [place] [address] Janet Renae MD Cough (Raw throat) 07/14/2024 Travel 07/13/2024 Travel 07/05/2024 9:10 AM HEADEND TECHNICIAN [facility] [address] [place] [address] Zena Devlin MD Sinus Problem (since friday 12/ coughing, mucus green, body aches, fever last 2 days 100.3, lost voice over the weekend, 2 COVID-19 at home were Negative) 07/05/[address] [address] Zena Devlin MD Medication Management 07/05/2024 Travel 07/03/2024 Nurse Triage [facility] [address] [facility] [place] [address] Janet Renae MD Cough 06/23/2024 8:20 AM HEADEND TECHNICIAN [facility] [address] [place] [address] Zena Devlin MD Abdominal Pain (Started 10pm last night, nothing working, pain scale of 10 ) 06/23/2024 Travel 06/14/2024 Telephone [facility] [address] [place] [address] Antonieta Mace MS, [facility] [place] Up (Cancer genetic testing results) 06/02/2024 1:45 PM HEADEND TECHNICIAN Office Visit [address] [address] Jen Hammer, SPORTS RECRUITER Follow Up 06/02/2024 Travel from Last 3 [...] on file Legal Sex Female 5:27 AM HEADEND TECHNICIAN Gender Identity Not on file Sexual Orientation [...] Comments Blood Pressure 136/82 07/05/2024 9:19 AM HEADEND TECHNICIAN Pulse 84 07/05/2024 9:19 AM HEADEND TECHNICIAN Temperature 37.6 C (99.6 F) 07/05/2024 9:19 AM HEADEND TECHNICIAN Respiratory Rate 17 06/02/2024 1:34 PM HEADEND TECHNICIAN Oxygen Saturation 98% 07/05/2024 9:19 AM HEADEND TECHNICIAN Inhaled Oxygen Concentration - - Weight 90.7 kg (200 lb) 07/05/2024 9:19 AM HEADEND TECHNICIAN Height 160 cm (5' 3) 04/13/2024 8:55 AM CDT Body Mass Index 35.43 04/13/2024 8:55 AM CDT Plan of Treatment Upcoming Encounters Date Type Department Care Team (Late st Contact Info) Description 09/02/2024 1:00 PM HEADEND TECHNICIAN Office Visit [facility] [address] [place] [address] Bety Ng MD [address] [place] [address] 09/07/2024 10:20 AM HEADEND TECHNICIAN [facility] [address] [place] [address] Vin Sequeira MD [address] [place] [address] Health Maintenance Due Date Last Done Comments [...] 65+ 04/14/2025 04/13/2024, 01/21/2023 Fecal testing sDNA-FIT (Emmalena guard) for age 45-75 05/05/2027 05/05/2024 Lipids [...] Diagnosis Comments RETICULOCYTES Routine 08/26/2024 12:08 PM HEADEND TECHNICIAN PLATELET ESTIMATION ([facility] REFLEX ONLY) Routine 08/26/2024 12:08 PM HEADEND TECHNICIAN CBC WITH AUTO DIFFERENTIAL Routine 08/26/2024 12:08 PM HEADEND TECHNICIAN COMP METABOLIC PANEL Routine 08/26/2024 12:08 PM HEADEND TECHNICIAN LD,TOTAL Routine 08/26/2024 12:08 PM HEADEND TECHNICIAN PLATELET ESTIMATION ([facility] REFLEX ONLY) Routine 07/14/2024 11:14 AM HEADEND TECHNICIAN CBC WITH AUTO DIFFERENTIAL Routine 07/14/2024 11:14 AM HEADEND TECHNICIAN Myelodysplastic syndrome (HC) RED CELL MORPHOLOGY STAT 06/23/2024 9 :18 AM HEADEND TECHNICIAN Abdominal pain, generalized PLATELET ESTIMATE STAT 06/23/2024 9:1 8 AM HEADEND TECHNICIAN Abdominal pain, generalized MANUAL DIFFERENTIAL STAT 06/23/2024 9 :18 AM HEADEND TECHNICIAN Abdominal pain, generalized CBC WITH AUTO DIFFERENTIAL STAT 06/23/2024 9:18 AM HEADEND TECHNICIAN Abdominal pain, generalized COMP METABOLIC PANEL STAT 06/23/2024 9:18 AM HEADEND TECHNICIAN Abdominal pain, generalized CBC WITH AUTO DIFFERENTIAL STAT 06/23/2024 9:18 AM HEADEND TECHNICIAN Abdominal pain, generalized URINALYSIS MACROSCOPIC - [facility] ONLY POC DIP ([facility]) Routine 06/23/2024 8:44 AM HEADEND TECHNICIAN Abdominal pain, generalized URINALYSIS MICROSCOPIC Routine 06/23/2024 8:43 AM HEADEND TECHNICIAN Abdominal pain, generalized URINE CULTURE Routine 06/23/2024 8:43 AM HEADEND TECHNICIAN Abdominal pain, generalized SDNA-FIT EXTERNAL (COLOGUARD) Routine [...] ESTIMATION ([facility] REFLEX ONLY) (08/26/2024 12:08 PM HEADEND TECHNICIAN) Only the most recent of2 resultswithin the time period is included. PLATELET ESTIMATION DECREASED( A) ADEQUATE [facility] 08/26/2024 12:0 8 PM HEADEND TECHNICIAN 08/26/2024 12:08 PM HEADEND TECHNICIAN us Li L Richy SPORTS RECRUITER HEMATOLOGY Final Result Performing Organization Address [facility]/ZIP Co de Phone Number [facility] [address] [place] [address], [place] [phone] [facility] [address] [place] [address] * LD,TOTAL (08/26/2024 12:08 PM HEADEND TECHNICIAN) Pathologist [facility] LD 216 120 - 250 U/L [facility] 08/26/2024 12:0 8 PM HEADEND TECHNICIAN 08/26/2024 12:08 PM HEADEND TECHNICIAN us Jen Villanuevay SPORTS RECRUITER CHEMISTRY Final Result Performing Organization Address [facility] Co de Phone Number [facility] [address] [place] [address], [place] [phone] [facility] [address] [place] [address] * RETICULOCYTES (08/26/2024 12:08 PM HEADEND TECHNICIAN) [facility] RETICULOCYTE COUNT, AUTOMATED 1.3 % [facility] RETICULOCYTE, ABSOLUTE 56,160 20,000 - 80,000 cells/uL [facility] 08/26/2024 12:0 8 PM HEADEND TECHNICIAN 08/26/2024 12:08 PM HEADEND TECHNICIAN us Li L Selly SPORTS RECRUITER HEMATOLOGY Final Result Performing Organization Address [facility]/ZIP Co de Phone Number [facility] [address] [place] [address], [place] [phone] [facility] [address] [place] [address] * (ABNORMAL) CBC AND DIFFERENTIAL (08/26/2024 12:08 PM HEADEND TECHNICIAN) Only the most recent of2 resultswithin the [...] Giant platelets noted. 08/26/2024 12:0 8 PM HEADEND TECHNICIAN 08/26/2024 12:08 PM HEADEND TECHNICIAN us Jen Hammer NP HEMATOLOGY Final Result [employer] [facility] [address] [place] [address], [facility] [address] [place] [address] * COMP METABOLIC PANEL (08/26/2024 12:08 PM HEADEND TECHNICIAN) Only the most recent of2 resultswithin the time period is included. GLUCOSE 93 65 - 99 mg/dL [facility] [employer] Reporter[employer]ton Ocampo Comment: Fasting reference interval UREA NITROGEN (BUN) 15 7 - 25 mg/dL [facility] CREATININE 0.88 0.60 - 1.00 mg/dL [employer] [facility] EGFR 71 > OR = 60 mL/min/1. 73m2 [employer] BUN/CREATININE RATIO SEE NOTE: 6 - 22 (calc) [facility] Comment: Not Reported: BUN and Creatinine are within reference range. SODIUM 140 135 - 146 mmol/L [employer] [facility] POTASSIUM 3.9 3.5 - 5.3 mmol/L [facility] CHLORIDE 105 98 - 110 mmol/L [facility] CARBON DIOXIDE 25 20 - 32 mmol/L [facility] CALCIUM 9.4 8.6 - 10.4 mg/dL [facility] PROTEIN, TOTAL 7.2 6.1 - 8.1 g/dL [facility] ALBUMIN 4.4 3.6 - 5.1 g/dL [facility] GLOBULIN 2.8 1.9 - 3.7 g/dL (calc) [facility] ALBUMIN/GLOBULIN RATIO 1.6 1.0 - 2.5 (calc) [facility] BILIRUBIN, TOTAL 0.4 0.2 - 1.2 mg/dL [facility] ALKALINE PHOSPHATASE 67 37 - 153 U/L [facility] AST 18 10 - 35 U/L [facility] ALT 17 6 - 29 U/L [facility] 08/26/2024 12:0 8 PM HEADEND TECHNICIAN 08/26/2024 12:08 PM HEADEND TECHNICIAN us Jen L Jaquelin SPORTS RECRUITER CHEMISTRY Final Result [employer] [facility] [address] [place] [address], [place] [phone] [facility] [address] [place] [address] * (ABNORMAL) CBC WITH AUTO DIFFERENTIAL (06/23/2024 9:18 AM HEADEND TECHNICIAN) WHITE BLOOD COUNT 4.3(L) 4.5 - 11.0 thou/cu mm 06/23/2024 1:11 PM [facility] RED BLOOD COUNT 4.37 4.00 - 5.20 mil/cu mm 06/23/2024 1:11 PM [facility] HEMOGLOBIN 12.5 12.0 - 16.0 g/dL 06/23/2024 1:11 PM [facility] HEMATOCRIT 40.6 33.0 - 51.0 % 06/23/2024 1:11 PM [facility] MCV 93 80 - 100 fL 06/23/2024 1:11 PM [facility] MCH 28.6 26.0 - 34.0 pg 06/23/2024 1:11 PM [facility] MCHC 30.8(L) 32.0 - 36.0 g/dL 06/23/2024 1:11 PM [facility] RDW 14.2 11.5 - 15.5 % 06/23/2024 1:11 PM [facility] PLATELET COUNT 41(L) 140 - 440 thou/cu mm 06/23/2024 1:11 PM [facility] MPV 06/23/2024 1:11 PM [facility] Comment:Unable to be determi kelly Blood BLOOD SPECIMEN / Unknown [facility] / Unknown 06/23/2024 9:18 AM HEADEND TECHNICIAN 06/23/2024 9:18 AM HEADEND TECHNICIAN us Zena Devlin MD HEMATOLOGY Final Resul t Performing Organization Address [facility]/ZIP Co de Phone Number [facility] [address] [place] [address] * RED CELL MORPHOLOGY (06/23/2024 9:18 AM HEADEND TECHNICIAN) RBC COMMENT RBC morphology appears normal RBC morphology appears normal, RBC morphology within normal limits for newborns. 06/23/2024 1:11 PM HEADEND TECHNICIAN [facility] LARGE PLATELETS Present 06/23/2024 1:11 PM HEADEND TECHNICIAN [facility] Blood BLOOD SPECIMEN / Unknown [facility] / Unknown 06/23/2024 9:18 AM HEADEND TECHNICIAN 06/23/2024 9:18 AM HEADEND TECHNICIAN us Zena Devlin MD HEMATOLOGY Final Resul t Performing Organization Address [facility] Co de Phone Number [facility] [address] [place] [address] * (ABNORMAL) PLATELET ESTIMATE (06/23/2024 9:18 AM HEADEND TECHNICIAN) Pathologist [facility] PLATELET ESTIMATE Decreased (A) Adequate, No estimate 06/23/2024 1:11 PM HEADEND TECHNICIAN [facility] Blood BLOOD SPECIMEN / Unknown [facility] / Unknown 06/23/2024 9:18 AM HEADEND TECHNICIAN 06/23/2024 9:18 AM HEADEND TECHNICIAN us Zena Devlin MD HEMATOLOGY Final Resul t Performing Organization Address City/[facility] Co de Phone Number [facility] [address] [place] [address] * (ABNORMAL) MANUAL DIFFERENTIAL (06/23/2024 9:18 AM HEADEND TECHNICIAN) Pathologist [facility] % NEUTROPHILS 48.0 % 06/23/2024 1:11 PM [facility] % LYMPHOCYTES 31.0 % 06/23/2024 1:11 PM [facility] % MONOCYTES 20.0 % 06/23/2024 1:11 PM [facility] % EOSINOPHILS 1.0 % 06/23/2024 1:11 PM [facility] % BASOPHILS 0.0 % 06/23/2024 1:11 PM [facility] NEUTROPHILS ABSOLUTE 2.1 1.7 - 7.0 thou/cu mm 06/23/2024 1:11 PM [facility] LYMPHOCYTES ABSOLUTE 1.3 0.9 - 2.9 thou/cu mm 06/23/2024 1:11 PM [facility] MONOCYTES ABSOLUTE 0.9(H) <0.9 thou/cu mm 06/23/2024 1:11 PM [facility] EOSINOPHILS ABSOLUTE 0.0 <0.5 thou/cu mm 06/23/2024 1:11 PM [facility] BASOPHILS ABSOLUTE 0.0 <0.3 thou/cu mm 06/23/2024 1:11 PM [facility] Blood BLOOD SPECIMEN / Unknown [facility] / Unknown 06/23/2024 9:18 AM HEADEND TECHNICIAN 06/23/2024 9:18 AM HEADEND TECHNICIAN us Zena Devlin MD HEMATOLOGY Final Resul t Performing Organization Address City/State/[facility] Co de Phone Number [facility] [address] [place] [address] * (ABNORMAL) POCT Urinalysis Dipstick Only (06/23/2024 8:44 AM HEADEND TECHNICIAN) PH 7.0 5.0 - 8.0 [facility] SPECIFIC GRAVITY 1.020 1.001 - 1.035 [facility] GLUCOSE NEGATIVE NEGATIVE [facility] BILIRUBIN NEGATIVE NEGATIVE [facility] KETONES NEGATIVE NEGATIVE [facility] OCCULT BLOOD TRACE(A) NEGATIVE [facility] PROTEIN NEGATIVE NEGATIVE [facility] NITRITE NEGATIVE NEGATIVE [facility] LEUKOCYTE ESTERASE TRACE(A) NEGATIVE [facility] Urine URINE SPECIMEN / Unknown 06/23/2024 8:44 AM HEADEND TECHNICIAN 06/23/2024 8:45 AM HEADEND TECHNICIAN us Zena Devlin MD URINE Final Resul t [facility] [address] [place] [address], [facility] [address] [place] [address] * (ABNORMAL) URINALYSIS MICROSCOPIC (06/23/2024 8:43 AM HEADEND TECHNICIAN) RBC 3-5(A) 0-2, None Seen /HPF 06/23/2024 2:20 PM HEADEND TECHNICIAN [facility] WBC 0-2 0-2, 3-5, None Seen /HPF 06/23/2024 2:20 PM HEADEND TECHNICIAN [facility] BACTERIA None Seen None Seen, Rare, Few Bacteria/ HPF 06/23/2024 2:20 PM HEADEND TECHNICIAN [facility] EPITHELIAL CELLS None Seen None Seen, Few Epi/HPF 06/23/2024 2:20 PM HEADEND TECHNICIAN [facility] Urine URINE SPECIMEN / Unknown Non-Blood / Unknown 06/23/2024 8:43 AM HEADEND TECHNICIAN 06/23/2024 8:43 AM HEADEND TECHNICIAN us Zena Devlin MD URINE Final Resul t [facility] [address] [place] [address], * URINE CULTURE (06/23/2024 8:43 AM HEADEND TECHNICIAN) CULTURE No growth (<1,000 CFU/mL) 06/24/2024 3:41 PM HEADEND TECHNICIAN [facility] Urine URINE SPECIMEN / Unknown Non-Blood / Unknown 06/23/2024 8:43 AM HEADEND TECHNICIAN 06/23/2024 8:43 AM HEADEND TECHNICIAN us Zena Devlin MD MICROBIOLOGY Final Resul t [facility] [address] [place] [address], * SDNA-FIT EXTERNAL (COLOGUARD) (05/05/2024 8:15 PM CDT) NONINV COLON CA DNA+OCC BLD SCRN STL-IMP Negative Negative 05/12/2024 9:31 AM CDT [employer] (CLIA #:[id number]) Comment: NEGATIVE TEST RESULT. A negative Cologuard [...] Coronel et al, N Engl J Med 2014;370(14):7757-3829) The normal value (reference range) for this assay is negative. COLOGUARD RE-SCREENING RECOMMENDATION: Periodic colorectal cancer screening is an important part of preventive healthcare for asymptomatic individuals at average risk for colorectal cancer. Following a negative Cologuard result, the [place] Cancer Society and U.S. Multi-Society Task Force screening guidelines recommend a Cologuard re-screening interval of 3 years. References: [place] [employer] Guideline for Colorectal Cancer Screening: https://www.cancer.org/cancer/vfyac-ktddle-owiaqe/cjwpbfktz-ocltuwsbs-uofydub/ac s-rec ommendations.html.; Mickey DK, Darryl CR, Jyoti SALGADO, Colorectal Cancer Screening: Recommendations for Physicians and Patients from the U.S. Multi-Society Task Force on Colorectal Cancer Screening , Am J Gastroenterology 2017; 112:3375-1237. TEST DESCRIPTION: Composite algorithmic analysis of stool [...] Elias. et al, N Engl J Med 2014;370(14):0315-7570.) Cologuard may produce a false negative or false positive result (no colorectal cancer or precancerous polyp present at colonoscopy follow up). A negative Cologuard test result does not guarantee the absence of CRC or advanced adenoma (pre-cancer). The current Cologuard screening interval is every 3 years. ([place] Cancer Society and U.S. Multi-Society Task Force). Cologuard performance data in a 10,000 patient pivotal study using colonoscopy as the reference method can be accessed at the following location: www.EndoShape.com/results. Additional description of the Cologuard test process, warnings and precautions can be found at [email or web address]. Stool specimen (specimen) (Rectum) 05/05/2024 8:15 PM CDT 05/07/2024 10:00 AM CDT Janet Renae MD URINE Final Result [employer] (CLIA #:[id number]) [address] [place] [address], [place] [phone] * (ABNORMAL) LIPID PANEL W REFLEX MEASURED [...] LDL-C. Jeovany CABALLERO et al. ZAHRAA. 2013;310(19): 7646-9823 (http://education.Uniiverse/faq/UNZ963) CHOL/HDLC RATIO 3.8 <5.0 (calc) [facility] NON HDL CHOLESTEROL 168(H) <130 mg/dL (calc) [facility] Comment: For patients with diabetes plus 1 major ASCVD risk factor, treating to a non-HDL-C goal of <100 mg/dL (LDL-C of <70 mg/dL) is considered a therapeutic option. Blood BLOOD SPECIMEN / Unknown 04/13/2024 11:19 AM CDT 04/13/2024 11:19 AM CDT Janet Renae MD CHEMISTRY Final Result [employer] [facility] [address] [place] [address], [place] [phone] [employer] [facility] [address] [place] [address] * XR MAMMO BANDAR BILAT SCREEN (03/23/2024 [...] care provider. XR MAMMO BANDAR BILAT SCREEN [[id number]] CLINICAL HISTORY: This is an asymptomatic 69 y.o. patient. INDICATION FOR EXAM: Mammogram Screening. TECHNIQUE: CC & MLO views were obtained. This study was evaluated with the assistance of Computer-Aided Detection. Breast Tomosynthesis was used in interpretation. COMPARISON FILM: Yes 01/21/23 [employer] 09/20/21 AllHIGH MOBILITY FINDINGS: There are scattered areas of fibroglandular [...] DEXA Final Resu lt * ANTI HCV [[id number]] (05/05/2018 8:49 AM CDT) HEPATITIS C ANTIBODY Non-React billy Non-React billy 05/05/2018 2:14 PM CDT [facility] Comment:Antibodies to HCV no t detected; does not exclude the possibility of exposure to HCV. Blood BLOOD SPECIMEN / Unknown Venipuncture / Unknown 05/05/2018 8:49 AM CDT 05/05/2018 8:49 AM CDT us Andrey Fletcher MD SEND OUTS Final Resu lt [facility] 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
== END 2024-08-31 21:53 | disposition home or self-care (01) ==
LOC: ED 21:51
PROVIDERS: Emergency Provider Emergency Medicine; PCP Family Medicine
DX: M25.561 Pain in right knee (principal)
CPT/HCPCS: 99283; 99284; A9270

== ENCOUNTER 2025-02-22 14:46 | Outpatient (CLI) | payer MEDICARE, OTHER, SELFPAY | END 2025-02-22 14:47 | disposition home or self-care (01) | LOC: INJ CL 14:47 | PROVIDERS: PCP Family Medicine; Visit Provider Family Medicine | DX: M17.11 Unilateral primary osteoarthritis, right knee (principal); M25.561 Pain in right knee; G89.29 Other chronic pain | CPT/HCPCS: 64454 ==

== ENCOUNTER 2025-03-08 12:06 | Outpatient (CLI) | payer MEDICARE, OTHER, SELFPAY | END 2025-03-08 12:07 | disposition home or self-care (01) | LOC: INJ CL 12:07 | PROVIDERS: PCP Family Medicine; Visit Provider Family Medicine | DX: M17.11 Unilateral primary osteoarthritis, right knee (principal); M25.561 Pain in right knee; G89.29 Other chronic pain | CPT/HCPCS: 64454; 64624; J2250; J3010 ==